=== PATIENT | female | born 1985 | race Caucasian/White ===

== ENCOUNTER 2017-06-19 23:28 | Inpatient (IN) | payer OTHER ==
[~2017-06-19] VITALS: Ht 167.6 cm; Wt 73.5 kg
[~2017-06-19 23:28] MED LIST: CEPH500C PO; Docusate Sodium PO; Hydrocodone/Acetaminophen PO; Ibuprofen PO; PREN-121 PO
[2017-06-19] MEDS ORDERED: Lactated Ringer's 1,000 ML IV PRN (23:56)
[2017-06-20] MEDS ORDERED: Sodium Chloride LOK Flush 10 mL Syringe IVFLUSH PRN
[2017-06-20] MEDS ORDERED: fentaNYL-PF 50 mCg/mL 2 mL Inj IVPUSH PRN
[2017-06-20] MEDS ORDERED: Oxytocin 30 Units/500 mL LR Premix IV ONE (00:01)
[2017-06-20 00:09] LABS: Mean Corpuscular Hemoglobin 25.8 pg (27.0-35.0); Mean Corpuscular Volume 80.6 fL (81-100)
--- NOTE | 2017-06-20 01:41 | OP ---
[address] [address] OPERATIVE REPORT PATIENT: MERCEDES DELATORRE : 1985 MR#: [id number] ADMIT: 06/19/2017 JOB ID: [id number] DATE OF SURGERY: 06/20/2017 SURGEON: Reinaldo Leonard MD PREOPERATIVE DIAGNOSIS(ES): POSTOPERATIVE DIAGNOSIS(ES): [facility] NOTE: The patient was admitted to [facility] at term with active labor. She was at 7 cm dilated, and labor rapidly progressed up to 9 cm and then 10 cm. She elected not to have epidural and she did well. Once completely dilated, she pushed well and had a very short second stage of labor, head descended and crowned and then delivered followed by delivery of the shoulders, body and extremities. Baby was active and crying and vigorous upon delivery and was handed to mother for bonding and further nurse management. After one minute, umbilical cord was clamped and cut. Cord blood was obtained for routine studies. Placenta with membranes were spontaneously expelled, intact. Uterus contracted well with massage plus intravenous Pitocin infusion. Blood loss was in the 150 cc range. Betadine solution was used to cleanse the vulvovaginal region and only one laceration noted, i.e. small second-degree midline perineal laceration. This was easily repaired with 3-0 chromic suture in running deep and then more superficial/subcuticular layers. Hemostasis was then noted to be complete. Note, no hematoma formation. Uterine bleeding was minimal at procedure's close. Instrument, needle and sponge counts were found to be correct. There were no rectal lacerations or stitches. It certainly is anticipated that patient and baby will do well during the timeframe.
[2017-06-20] MEDS ORDERED: Oxytocin 10 Unit/mL Inj IM PRN ×2 (01:45)
[2017-06-20] MEDS ORDERED: TdaP Vaccine 0.5 mL Inj IM ONE (01:45)
[2017-06-20] MEDS ORDERED: Carboprost 250 mCg/mL Inj IM PRN ×2 (01:45)
[2017-06-20] MEDS ORDERED: Measles-Mumps-Rubella Vaccine 0.5 mL Inj SUBQ ONE (01:45)
[2017-06-20] MEDS ORDERED: HYDROcodone-APAP 5-325 mg Tablet PO PRN (01:45)
[2017-06-20] MEDS ORDERED: Oxytocin 30 Units/500 mL LR 30 UNITS in IV Premix 1 EACH IV PRN ×2 (01:45)
[2017-06-20] MEDS ORDERED: Methylergonovine 0.2 mg/mL Inj IM PRN ×2 (01:45)
[2017-06-20] MEDS ORDERED: Witch Hazel-Glycerin Pads TOPICAL PRN (01:45)
[2017-06-20] MEDS ORDERED: LANOlin HPA 7 Gm Ointment TOPICAL PRN (01:45)
[2017-06-20] MEDS ORDERED: Hemorrhage Kit, Post Partum XX ONE ×2 (01:45)
[2017-06-20] MEDS ORDERED: Influenza (Adult) Vaccine 0.5 mL Syringe IM ONE (01:45)
[2017-06-20] MEDS ORDERED: Benzocaine (Dermoplast) 20% 60 Gm Spray TOPICAL PRN (01:45)
--- NOTE | 2017-06-20 02:46 | HP ---
[address] [address] HISTORY AND PHYSICAL PATIENT: MERCEEDS DELATORRE : 1985 MR#: [id number] ADMIT: 06/19/2017 JOB ID: [id number] [facility] NOTE: DATE: 06/20/2017, at 0100 hours. SUBJECTIVE: The patient is a 31-year-old, AB1, woman, followed prenatally at [facility], see record for details. She has previously had a vaginal delivery at term. She is admitted at 40-5/7 weeks gestation, in labor, without ruptured membranes. She requested no epidural. PHYSICAL EXAMINATION: On admission, last height, weight and blood pressure in the office, 66 inches, 159 pounds, blood pressure 108/68, respectively. Neck: No thyromegaly. Lungs: Clear to auscultation and percussion. Heart: Regular in rate and rhythm. Abdomen: Fundal height 38 cm at last check. Positive heartbeat. Pelvic examination: Initial cervical exam 7 cm dilatation. IMPRESSION: 1. A 40-5/7 weeks . 2. Active labor. 3. Intact membranes. 4. Negative group B Strep status. 5. Rubella immune. 6. Rh positive. 7. Mild anemia noted in the third trimester, note current hemoglobin of 10.2. 8. Surgical history: a. Reproductive history-prior EAB, then 39-1/2 week with delivery of 7 pound 15 ounce baby, very rapid active phase of labor, pushed for only 30 minutes, then current . b. Loop electrosurgical excision procedure previously. c. Breast augmentation, 2009. 9. Prior human papillomavirus (HPV). 10. Prior melanoma in 2012. 11. No known drug allergies. 12. Family history of diabetes (grandfather), hypertension (grandfather), thyroid problem (mother), breast cancer (maternal grandmother), and twins (the patient is a twin). PLAN: The patient was admitted to [facility] on June 20, 2017, in active labor. No epidural requested. Anticipating vaginal delivery.
[2017-06-20] MEDS: Lactated Ringer's 1,000 ML IV SCH ×2 (09:45→17:45)
[2017-06-21 06:33] LABS: Mean Corpuscular Hemoglobin 25.5 pg (27.0-35.0); Mean Corpuscular Volume 84.3 fL (81-100)
--- NOTE | 2017-06-21 10:48 | PCM.DIOB ---
Obstetrical Disch Instruction Dates of Hospitalization Date of Hospital Admission Jun 19, 2017 at 23:36 Providers Admitting Physician: Reinaldo Leonard MD Primary Care Physician: Reinaldo Leonard MD Attending Physician: Reinaldo Leonard MD Discharge Diagnosis Problems: (1) Status: Acute ICD Code: Z33.1 Diet Discharge Diet: No restrictions Activity Discharge Activity-General: Pelvic Rest for 6 weeks Dressing and Incisional Care Hygiene: May shower, Perineal care, Sitz bath, Dermoplast spray, Witch Shira pads, Ice Follow Up Plan Follow-up appointment: Weeks ([place] in 6 weeks for checkup.) Call your provider for: Fever or Chills, Shortness of breath, Heavy vaginal bleeding, Red painful breasts Reinaldo Leonard MD Jun 21, 2017 10:48
[2017-06-21] MEDS ORDERED: FERR-83 PO (10:50)
[2017-06-21] MEDS ORDERED: IBUP-1827 PO (10:50)
--- NOTE | 2017-06-22 20:15 | DIS ---
[address] [address] DISCHARGE SUMMARY PATIENT: MERCEDES DELATORRE : 1985 MR#: [id number] ADMIT: 06/19/2017 JOB ID: [id number] DIS: 06/21/2017 DISCHARGE DIAGNOSES: 1. Term , delivered. 2. Anemia. PROCEDURES PERFORMED DURING HOSPITALIZATION: 1. Vaginal delivery. 2. Perineal laceration repair. HOSPITAL COURSE: The patient admitted to [facility] and ultimately underwent delivery early in the morning of June 20, 2017 after precipitous labor. She did not have an epidural. During the timeframe, the patient did well, with stable vitals, afebrile, with reasonable bleeding and pain management, ambulating and voiding, and handling baby well. Note that hemoglobin dropped below 9, although the patient was not dizzy or otherwise symptomatic. She was interested in going home on the first day, i.e. on June 21, 2017. DISCHARGE PROGRAM: Patient will call if she has any heavy bleeding, high fever, or other problem. Otherwise, she will observe pelvic rest for six weeks and return to the office for checkup in six weeks. DISCHARGE MEDICATIONS: 1. Ibuprofen 600 mg. 2. Ferrous sulfate 325 mg, prescription written. 3. She will also use vitamin daily while nursing.
== END 2017-06-21 11:39 | disposition home or self-care (01) | DRG 560 ==
LOC: FBCO 23:28 → FBC 23:36
PROVIDERS: ADMIT Obstetrics & Gynecology; ATTEND Obstetrics & Gynecology
PROC: 10E0XZZ Delivery of Products of Conception, External Approach (ICD-10-PCS; principal; 2017-06-20)
PROC: 0KQM0ZZ Repair Perineum Muscle, Open Approach (ICD-10-PCS; 2017-06-20)
DX: O70.1 Second degree perineal laceration during delivery (principal); Z37.0 Single live birth; D64.9 Anemia, unspecified; Z3A.40 40 weeks gestation of pregnancy; O99.02 Anemia complicating childbirth; O62.3 Precipitate labor